=== PATIENT | male | born 1960 | race Caucasian/White ===

== ENCOUNTER 2017-06-25 22:47 | Emergency (ER) | payer OTHER ==
[~2017-06-25] VITALS: Ht 165.1 cm; Wt 96.8 kg
[~2017-06-25 22:47] MED LIST: ASPIR 8181 M1 PO; ATORVASTATIN CA80 MG PO; BYSTOLIC10 MG PO; CEFADROXIL500 MG PO; CIPRO500 MG PO; COUMADIN10 MG PO; COUMADIN5 MG PO; CRESTOR40 MG PO; DIOVAN HCT 31 TABLET PO; DIOVAN80 MG PO; FLAGYL500 MG PO; GLUCOPHAGE1000 MG PO; GLYBURIDE-METF1 EAC3 PO; IRON325 M1 PO; PLAVIX75 MG PO; PRILOSEC OTC20 MG PO; ZETIA10 MG PO; ZOFRAN4 MG PO; [UNRECOGNIZED DRUG - OTHER] IV
[2017-06-25 22:55] VITALS: BP 153/89
== END 2017-06-26 01:03 | disposition home or self-care (01) ==
LOC: EME 22:47
PROC: 3E0234Z Introduction of Serum, Toxoid and Vaccine into Muscle, Percutaneous Approach (ICD-10-PCS; principal; 2017-06-25)
DX: S01.01XA Laceration without foreign body of scalp, initial encounter (principal); W22.09XA Striking against other stationary object, initial encounter; Z23 Encounter for immunization; Z79.01 Long term (current) use of anticoagulants; I25.10 Atherosclerotic heart disease of native coronary artery without angina pectoris; Z79.02 Long term (current) use of antithrombotics/antiplatelets; Z95.5 Presence of coronary angioplasty implant and graft; Z95.1 Presence of aortocoronary bypass graft; Z88.5 Allergy status to narcotic agent; Z88.0 Allergy status to penicillin; Z88.6 Allergy status to analgesic agent
CPT/HCPCS: 70450; 99281; 99283